=== PATIENT | female | born 1955 | race Two or more races ===

== ENCOUNTER 2020-11-08 15:11 | Emergency (ER) | payer MEDICAID ==
[~2020-11-08] VITALS: Ht 160 cm; Wt 73.5 kg
[2020-11-08 16:39] VITALS: BP 143/77
== END 2020-11-08 18:09 | disposition home or self-care (01) ==
LOC: ER 15:11
DX: M25.462 Effusion, left knee (principal); M25.511 Pain in right shoulder; E11.9 Type 2 diabetes mellitus without complications; M79.18 Myalgia, other site; Z88.0 Allergy status to penicillin; Z76.0 Encounter for issue of repeat prescription; W01.0XXA Fall on same level from slipping, tripping and stumbling without subsequent striking against object, initial encounter; Y93.89 Activity, other specified; Y92.89 Other specified places as the place of occurrence of the external cause; Y99.8 Other external cause status
CPT/HCPCS: 73562

== ENCOUNTER 2021-06-25 15:07 | Emergency (ER) | payer MEDICAID ==
[~2021-06-25] VITALS: Ht 160 cm; Wt 73.9 kg
[2021-06-25 15:30] VITALS: BP 131/71
== END 2021-06-25 19:50 | disposition left against medical advice (07) ==
LOC: ER 15:07
DX: M54.50 Low back pain, unspecified (principal); Z53.21 Procedure and treatment not carried out due to patient leaving prior to being seen by health care provider; W18.30XA Fall on same level, unspecified, initial encounter; Y93.89 Activity, other specified; Y92.89 Other specified places as the place of occurrence of the external cause; Y99.8 Other external cause status

== ENCOUNTER 2024-08-12 12:06 | Emergency (ER) | payer MEDICARE, MEDICAID ==
[~2024-08-12] VITALS: Ht 160 cm; Wt 55.9 kg
--- NOTE | 2024-08-12 13:58 | ED.PDOC ---
General HPI Comments 68 year old female presents to the ED with chief complaint of left flank and lower abdominal pain. Patient reports she has been experiencing left sided flank pain with associated abdominal discomfort for the past 3-4 days, however, she has also been experiencing nausea, vomiting, and headache for the past 2 weeks. Patient relays that her pain is worse with food and drink. Patient states she has been non-compliant with her home medication recently as she does not feel like taking them. Patient denies any urinary symptoms, fever, or chills. Chief Complaint: Abdominal Pain Time Seen by MD: 13:54 Primary Care Provider: CHENTE Whittington notes: Nurses Notes, Medications, Allergies Allergies: Coded Allergies: Penicillins (Verified Allergy, Unknown, 11/08/20) Information Source: Patient Mode of Arrival: Ambulatory Severity: Moderate Inability to void: None Timing: Weeks Duration: Since onset Prehospital treatment: None Onset: Spontaneous Symptoms: None History of: None Location: Abdomen, (L)Flank Modifying factors: None associated signs and symptoms: Abdominal Pain, Nausea, Vomiting, Flank Pain Past Medical History PAST MEDICAL HISTORY: Anxiety, DM, High Lipids Surgical History: Cholecystectomy Surgical History (Other): Left knee surgery, Rt shoulder surgery [employer]NER History: Denies all [employer]TER [employer] TURNER Hx Family History Family History: Reviewed,noncontributory to illness Social History Smoker: Non-Smoker Alcohol: Denies ETOH Use Drugs: Denies Drug Use Lives In: Home Constitutional: denies: chills, diaphoresis, fatigue, fever, malaise, sweats, weakness, others EENTM: denies: blurred vision, double vision, ear bleeding, ear discharge, ear drainage, ear pain, ear ringing, eye pain, eye redness, hearing loss, mouth pain, mouth swelling, nasal discharge, nose bleeding, nose congestion, nose pain, photophobia, tearing, throat pain, throat swelling, voice changes, others Respiratory: denies: cough, hemoptysis, orthopnea, SOB at rest, shortness of breath, SOB with excertion, stridor, wheezing, others Cardiovascular: denies: chest pain, dizzy spells, diaphoresis, Dyspnea on exertion, edema, irregular heart beat, left arm pain, lightheadedness, palpitations, PND, syncope, others Gastrointestinal: reports: abdominal pain (discomfort), nausea, vomiting; denies: abdomen distended, blood streaked bowels, constipated, diarrhea, dysphagia, difficulty swallowing, hematemesis, melena, poor appetite, poor fluid intake, rectal bleeding, rectal pain, others Genitourinary: reports: flank pain (Left flank); denies: abnormal vagina bleeding, burning, dyspareunia, dysuria, frequency, hematuria, incontinence, pain, , vagina discharge, urgency, others Neurological: reports: headache; denies: dizziness, fainting, left sided numbness, left sided weakness, numbness, paresthesia, pre-existing deficit, right sided numbness, right sided weakness, seizure, speech problems, tingling, tremors, weakness, others Musculoskeletal: denies: back pain, gout, joint pain, joint swelling, muscle pain, muscle stiffness, neck pain, others Integumetry: denies: bruises, change in color, change in hair/nails, dryness, laceration, lesions, lumps, rash, wounds, others Allergic/Immunocompromised: denies: Difficulty Healing, Frequent Infections, Hives, Itching, others Hematologic/Lymphatic: denies: anemia, blood clots, easy bleeding, easy bruising, swollen glands, others Endocrine: denies: excessive hunger, excessive sweating, excessive thirst, excessive urination, flushing, intolerance to cold, intolerance to heat, unexplained weight gain, unexplained weight loss, others Psychiatric: denies: anxiety, bipolar disorder, depression, hopeless, panic disorder, schizophrenia, sleepless, suicidal, others All Other Systems: Reviewed and Negative Physical Exam General Appearance: No Apparent Distress HEENT: Normal ENT Inspection Neck: Full Range of Motion, Normal Inspection Respiratory: Lungs Clear, No Accessory Muscle Use, No Respiratory Distress, Normal Breath Sounds Cardiovascular: No Edema, No JVD, Regular Rate/Rhythm Breast Exam: Deferred Gastrointestinal: LLQ, LUQ, RLQ, Tenderness Genitalia: Deferred Pelvic: Deferred Rectal: Deferred Extremities: Normal inspection, Normal range of motion, Non-tender, No pedal edema Neurologic: Alert (Oriented x4), Normal Affect, Normal Mood, Other (Ambulatory without difficulty. No gross focal deficit.) Cerebellar Function: NOT DONE Reflexes: NOT DONE Skin: Dry, Normal Color, Warm Lymphatic: NOT DONE Was a procedure done? Was a procedure done?: No Differential Diagnosis Kidney stone (Female): Appendicitis, Bowel obstruction, Renal failure, Urinary obstruction, Other (Colitis, diverticulitis, gastroenteritis, electrolyte imbalance, hypovolemia, among others) Urinary Problem (Female): UTI X-Ray, Labs, Meds, VS Vital Signs Date Time Temp Pulse Resp B/P (MAP) Pulse Ox O2 Delivery O2 Flow Rate FiO2 08/12/24 15:15 64 16 97 Room Air 08/12/24 15:15 98.7 64 16 137/76 (96) 97 98.7 08/12/24 12:30 97.5 67 18 130/67 (88) 98 Lab Test 08/12/24 14:40 08/12/24 13:46 08/12/24 12:45 Range/Units Troponin I High Sensitivity 3 L 3 L </=34 ng/L White Blood Count 5.9 4.4-10.8 10^3/uL Red Blood Count 4.14 4.0-5.20 10^6/uL Hemoglobin 12.8 12.2-16.2 g/dL Hematocrit 38.1 36.0-46.0 % Mean Corpuscular Volume 92.1 80.0-100.0 fL Mean Corpuscular Hemoglobin 30.9 28.0-32.0 pg Mean Corpuscular Hemoglobin Concent 33.6 32.0-36.0 g/dL Red Cell Distribution Width 12.9 11.8-14.3 % Platelet Count 166 140-450 10^3/uL Mean Platelet Volume 9.3 6.9-10.8 fL Neutrophils (%) (Auto) 53.4 37.0-80.0 % Lymphocytes (%) (Auto) 39.0 10.0-50.0 % Monocytes (%) (Auto) 6.3 0.0-12.0 % Eosinophils (%) (Auto) 1.0 0.0-7.0 % Basophils (%) (Auto) 0.3 0.0-2.0 % Neutrophils # (Auto) 3.1 1.6-8.6 10 ^3/uL Lymphocytes # (Auto) 2.3 0.4-5.4 10 ^3/uL Monocytes # (Auto) 0.4 0-1.3 10 ^3/uL Eosinophils # (Auto) 0.1 0-0.8 10 ^3/uL Basophils # (Auto) 0 0-0.2 10 ^3/uL Nucleated Red Blood Cells 0.1 % Sodium Level 141 136-145 mmol/L Potassium Level 4.0 3.5-5.1 mmol/L Chloride Level 107 98-107 mmol/L Carbon Dioxide Level 28 20-31 mmol/L Anion Gap 6 5-15 Blood Urea Nitrogen 12 9-23 mg/dL Creatinine 0.88 0.550-1.02 mg/dL Glomerular Filtration Rate Calc 72 >90 mL/min BUN/Creatinine Ratio 13.6 10.0-20.0 Serum Glucose 85 74-106 mg/dL Lactic Acid Level 1.3 0.4-2.0 mmol/L Calcium Level 10.0 8.7-10.4 mg/dL Total Bilirubin 0.5 0.2-1.0 mg/dL Aspartate Amino Transferase (AST) 24 13-40 U/L Alanine Aminotransferase (ALT) 22 7-40 U/L Alkaline Phosphatase 63 46-116 U/L B-Type Natriuretic Peptide 66.62 0-100 pg/mL Total Protein 6.8 5.7-8.2 g/dL Albumin 4.3 3.2-4.8 g/dL Lipase 46 12-53 U/L Urine Color Colorless Yellow Urine Clarity Clear Clear Urine pH 5.5 5.0-9.0 Urine Specific [place] 1.005 1.001-1.035 Urine Protein Negative Negative Urine Ketones Negative Negative Urine Blood Negative Negative /uL Urine Nitrite Negative Negative Urine Bilirubin Negative Negative Urine Urobilinogen Normal Negative mg/dL Urine Leukocyte Esterase Trace Negative /uL Urine RBC <1 0 - 4 /hpf Urine WBC 4 0 - 5 /hpf Urine Squamous Epithelial Cells None seen <5 /hpf Urine Bacteria None seen None Seen /hpf Urine Glucose Normal Normal mg/dL Current Medications Medications (Trade) Dose Ordered Sig/Aldo Route Start Time Stop Time Status Last Admin Sodium Chloride 1,000 ml @ 1,000 mls/hr Q1H ONCE IV 08/12/24 13:30 08/12/24 14:29 DC 08/12/24 15:24 Ondansetron HCl (Zofran) 4 mg ONCE ONCE IV 08/12/24 13:30 08/12/24 13:31 DC 08/12/24 15:24 Famotidine (Pepcid Injection) 20 mg ONCE ONCE IV 08/12/24 13:30 08/12/24 13:31 DC 08/12/24 15:25 Ketorolac Tromethamine (Toradol Injection) 15 mg ONCE ONCE IV 08/12/24 13:30 08/12/24 13:31 DC 08/12/24 15:25 CT Abd/Pel: FINDINGS: Motion artifact limits evaluation. Lung bases: Lung bases are clear. Liver: Grossly unremarkable in its noncontrast enhanced appearance. No abnormal density or focal lesion identified. Biliary: Cholecystectomy. Spleen: Unremarkable. Pancreas: Minimal stranding adjacent to the pancreatic head. Adrenal glands: Unremarkable. No mass. Kidneys: No hydronephrosis. No renal or ureteral calculi. Aorta/Vascular: Moderate atherosclerotic calcification. No abdominal aortic aneurysm. Retroperitoneum: No mass or lymphadenopathy. Bowel/mesentery: Nonspecific nondilated fluid-filled small bowel loops. No small bowel obstruction. Appendix is visualized and appears unremarkable. Scattered colonic diverticula without adjacent inflammatory changes to suggest diverticulitis. Pelvic organs: Grossly unremarkable. Bladder: Unremarkable. No mass. Abdominal wall: No mass or hernia. Bones: No acute fracture or suspicious intraosseous lesion. IMPRESSION: 1. Motion limited study. 2. Minimal stranding adjacent to the pancreatic head. Correlate clinically to exclude acute pancreatitis. 3. No hydronephrosis and no renal or ureteral calculi. 4. Nonspecific nondilated fluid-filled small bowel loops. No small bowel obstruction. 5. Normal-appearing appendix. 6. Scattered colonic diverticula without adjacent inflammatory changes to suggest diverticulitis. 7. Additional findings as described above. X-Ray, Labs, Meds, VS Comment 68-year-old female with a history of diabetes and dyslipidemia complaining of left flank and lower abdominal pain, nausea and vomiting. Vitals unremarkable Exam remarkable for left upper quadrant, left lower quadrant and right lower quadrant tenderness to palpation. No rebound or guarding. Rhythm strip independently interpreted by me: Sinus rhythm, rate 64, no ectopy. CT abdomen and pelvis: IMPRESSION: 1. Motion limited study. 2. Minimal stranding adjacent to the pancreatic head. Correlate clinically to exclude acute pancreatitis. 3. No hydronephrosis and no renal or ureteral calculi. 4. Nonspecific nondilated fluid-filled small bowel loops. No small bowel obstruction. 5. Normal-appearing appendix. 6. Scattered colonic diverticula without adjacent inflammatory changes to suggest diverticulitis. 7. Additional findings as described above. CBC, CMP, lipase, UA, lactate, BNP and troponin unremarkable for any abnormality of acute significance Patient treated with the following in the ED: 1 L 0.9 normal saline IV bolus, Pepcid 20 mg IV, Toradol 15 mg IV, Zofran 4 mg IV On re-evaluation, patient stated her symptoms had improved. Vitals were stable. Abdominal exam was benign. Hospitalization was considered, however patient had rapid improvement of her symptoms with treatment in the ED, and I no longer feel hospitalization is necessary. Patient appears stable for outpatient symptomatic treatment and close follow-up with her primary doctor. I will prescribe acid reducers, pain medications and antiemetics. I will also cover her with oral antibiotics for possible bacterial enteritis. Rx Protonix, Zofran, Bentyl, Cipro, Flagyl Images Reviewed?: Images reviewed and evaluated by me Time of 1ST Reevaluation: 14:54 Reevaluation 1ST: Unchanged Time of 2ND Reevaluation: 16:08 Reevaluation 2ND: Improved Patient Education/Counseling: Diagnosis, Treatment Family Education/Counseling: No Family Present Departure 1 Departure Time of Disposition: 16:08 Impression: Primary Impression: Abdominal pain Qualified Codes: R10.84 - Generalized abdominal pain Additional Impression: Nausea and vomiting Qualified Codes: R11.2 - Nausea with vomiting, unspecified Disposition: 01 HOME / SELF CARE / HOMELESS Condition: Stable Additional Instructions: Your blood and urine tests were unremarkable. Your CT scan did not show any finding that would explain your symptoms. I have prescribed pain medication, medication for nausea, and antibiotics to treat a possible intestinal infection. Follow-up with your primary doctor in 1-2 days. Resume your other medications as directed. e-Prescriptions Dicyclomine Hcl (BENTYL CAPSULE) 10 Mg Cp 2 CAP PO Q6HPRN, #30 CAP 3 Refills Prn abdominal pain Prov: GILBERTO POLO MD 08/12/24 Pantoprazole Sodium Sesquihydr (Protonix) 40 Mg Tab 40 MG PO DAILY, #30 TAB Prov: GILBERTO POLO MD 08/12/24 Ondansetron Odt 4MG Tab (ZOFRAN PO) 4 Mg Tb 4 MG PO TID PRN, #30 TAB Prn nausea/vomiting ODT TAB-DISSOLVE IN MOUTH, THEN SWALLOW Prov: GILBERTO POLO MD 08/12/24 Metronidazole (Flagyl) 500 Mg Tab 1 TAB PO TID for 10 Days, #30 TAB Prov: GILBERTO POLO MD 08/12/24 Ciprofloxacin Hcl (Cipro) 500 Mg Tab 1 TAB PO BID for 10 Days, #20 TAB Prov: GILBERTO POLO MD 08/12/24 Discharged With: Relative Critical Care Note Critical Care Time?: No Stability Stability form required: No Heart Score Heart Score: Heart Score Response (Comments) Value History N/A 0 EKG N/A 0 Age N/A 0 Risk Factors N/A 0 Troponin N/A 0 Total 0 I personally scribed for GILBERTO POLO MD ([email or web address]) on 08/12/24 at 13:58. Electronically submitted by Romero Jacinto ([email or web address]). I personally scribed for GILBERTO POLO MD ([email or web address]) on 08/12/24 at 14:29. Electronically submitted by Romero Jacinto ([email or web address]). GILBERTO POLO MD Aug 12, 2024 13:58
--- NOTE | 2024-08-12 14:06 | DVH ---
CLINICAL INFORMATION: 68 years old, Female; left flank pain and lower abdominal pain TECHNIQUE: Axial CT images of the abdomen and pelvis were obtained without IV contrast. Coronal and sagittal reformatted images were obtained, reviewed, and stored. Evaluation of the parenchymal organs is limited without IV contrast. Evaluation of the bowel and mesentery is limited without oral contra st. All CT scans at this medical facility are performed using dose modulation techniques as appropria te to a performed exam including the following: Automated exposure control was utilized; adjustment o f the MA and/or KV according to patient size; and use of iterative reconstruction technique. CTDIvol = 5.67 mGy DLP = 293.96 mGy-cm COMPARISON: None FINDINGS: Motion artifact limits evaluation. Lung bases: Lung bases are clear. Liver: Grossly unremarkable in its noncontrast enhanced appearance. No abnormal density or focal les ion identified. Biliary: Cholecystectomy. Spleen: Unremarkable. Pancreas: Minimal stranding adjacent to the pancreatic head. Adrenal glands: Unremarkable. No mass. Kidneys: No hydronephrosis. No renal or ureteral calculi. Aorta/Vascular: Moderate atherosclerotic calcification. No abdominal aortic aneurysm. Retroperitoneum: No mass or lymphadenopathy. Bowel/mesentery: Nonspecific nondilated fluid-filled small bowel loops. No small bowel obstruction. A ppendix is visualized and appears unremarkable. Scattered colonic diverticula without adjacent infla mmatory changes to suggest diverticulitis. Pelvic organs: Grossly unremarkable. Bladder: Unremarkable. No mass. Abdominal wall: No mass or hernia. Bones: No acute fracture or suspicious intraosseous lesion. IMPRESSION: 1. Motion limited study. 2. Minimal stranding adjacent to the pancreatic head. Correlate clinically to exclude acute pancreat itis. 3. No hydronephrosis and no renal or ureteral calculi. 4. Nonspecific nondilated fluid-filled small bowel loops. No small bowel obstruction. 5. Normal-appearing appendix. 6. Scattered colonic diverticula without adjacent inflammatory changes to suggest diverticulitis. 7. Additional findings as described above.
[2024-08-12 14:15] LABS: Urine Bacteria None Seen /hpf (None Seen)
[2024-08-12 14:18] LABS: Basophils # (auto) 0 10 ^3/uL (0-0.2); Basophils % (auto) 0.3 % (0.0-2.0); Eosinophils # (auto) 0.1 10 ^3/uL (0-0.8); Hematocrit 38.1 % (36.0-46.0); Hemoglobin 12.8 g/dL (12.2-16.2); Lymphocytes # (auto) 2.3 10 ^3/uL (0.4-5.4); Mean Corpuscular Hemoglobin 30.9 pg (28.0-32.0); Mean Corpuscular Hgb Conc. 33.6 g/dL (32.0-36.0); Mean Corpuscular Volume 92.1 fL (80.0-100.0); Monocytes # (auto) 0.4 10 ^3/uL (0-1.3); Monocytes % (auto) 6.3 % (0.0-12.0); Neutrophils # (auto) 3.1 10 ^3/uL (1.6-8.6); Neutrophils % (auto) 53.4 % (37.0-80.0); Nucleated Red Blood Cells % 0.1 %; Platelet Count (auto) 166 10^3/uL (140-450); Red Blood Cells 4.14 10^6/uL (4.0-5.20); Red Cell Distribution Width 12.9 % (11.8-14.3); White Blood Cell 5.9 10^3/uL (4.4-10.8)
[2024-08-12 14:25] LABS: Urine Blood Negative /uL (Negative); Urine Clarity Clear (Clear); Urine Color Colorless (Yellow); Urine Protein, UAD Negative (Negative); Urine Specific Gravity 1.005 (1.001-1.035); Urine Urobilinogen Normal (Negative); Urine WBC 4 /hpf (0 - 5); Urine pH 5.5 (5.0-9.0)
[2024-08-12 14:40] LABS: Alanine Aminotransferase 22 U/L (7-40); Albumin 4.3 g/dL (3.2-4.8); Alkaline Phosphatase 63 U/L (46-116); Anion Gap 6 (5-15); Aspartate Aminotransferase 24 U/L (13-40); BUN/Creatinine Ratio 13.6 (10.0-20.0); Blood Urea Nitrogen 12 mg/dL (9-23); Carbon Dioxide 28 mmol/L (20-31); Chloride 107 mmol/L (98-107); Glucose 85 mg/dL (74-106); Lipase 46 U/L (12-53); Sodium 141 mmol/L (136-145)
[2024-08-12 14:41] LABS: Bilirubin, Total 0.5 mg/dL (0.2-1.0); Total Protein 6.8 g/dL (5.7-8.2)
[2024-08-12] MEDS: ONDANSETRON HCL 4 MG/2 ML VIAL IV ONE (15:24)
[2024-08-12] MEDS: SODIUM CHLORIDE 0.9% 1,000 ML IV ONE (15:24)
[2024-08-12] MEDS: FAMOTIDINE (10MG/ML) 2ML VL IV ONE (15:25)
[2024-08-12] MEDS: KETOROLAC TROMETH 30 MG/ML 1ML VIAL IV ONE (15:25)
[2024-08-12] MEDS ORDERED: METR-344 PO (16:12)
[2024-08-12] MEDS ORDERED: PANT40TA2 PO (16:12)
[2024-08-12] MEDS ORDERED: ZOFR4T PO (16:12)
[2024-08-12] MEDS ORDERED: DICY10CA PO (16:12)
[2024-08-12] MEDS ORDERED: CIPR-173 PO (16:12)
[2024-08-12 16:55] VITALS: BP 141/52; PULSE 63; RESP 16; TEMP 98.7; O2SAT 97
== END 2024-08-12 16:56 | disposition home or self-care (01) ==
LOC: ER 12:06
DX: R10.32 Left lower quadrant pain (principal); R11.2 Nausea with vomiting, unspecified; E11.9 Type 2 diabetes mellitus without complications; E78.5 Hyperlipidemia, unspecified; Z88.0 Allergy status to penicillin; Z90.49 Acquired absence of other specified parts of digestive tract
CPT/HCPCS: 36415; 74176; 80053; 81001; 82962; 83605; 83690; 83880; 84484; 85025; 87086; 96361; 96374; 96375; 99285; J1885; J2405; J3490